=== PATIENT | male | born 1990 | race Caucasian/White ===

== ENCOUNTER 2018-03-02 07:35 | Outpatient (CLI) | payer BC ==
--- NOTE | 2018-03-02 08:57 | ULT ---
ABDOMINAL ULTRASOUND: DATE: 03/02/18. HISTORY: Abdominal pain. FINDINGS: The abdominal aorta, visualized portions of the IVC, limited visualized portions of the pancreas, aguilar er, spleen, and bilateral kidneys demonstrate a normal sonographic appearance. The right kidney aníbal ures 10.4 cm in length with the left kidney measuring 10.6 cm in length. The common duct measures 0. 3 cm in diameter. There are a few echogenic foci seen in the gallbladder lumen which do not demonstrate posterior shado wing and probably are related to cholesterol crystals. No gallbladder calculus is visualized. There is no gallbladder wall thickening or pericholecystic fluid. IMPRESSION: Findings likely related to cholesterol crystals/sludge in the gallbladder lumen. No gallbladder calc ulus is seen. The common duct is normal in caliber. Otherwise, no acute findings are seen on this a bdominal ultrasound. POS: [facility]
--- NOTE | 2018-03-02 09:24 | ULT ---
SCROTAL SONOGRAM WITH DUPLEX EVALUATION: HISTORY: Scrotal pain. FINDINGS: Right testicle 5.1 cm with scant microlithiasis. Good color and spectral Doppler flow. Left testicle 4.6 cm with good color and spectral Doppler flow. Slight interval increasing vasculari ty left scrotum upon Valsalva maneuver. IMPRESSION: Small left varicocele. No other significant abnormalities demonstrated. POS: [facility]
== END 2018-03-02 07:36 | disposition home or self-care (01) ==
LOC: ULT 07:35
PROVIDERS: ATTEND Internal Medicine Gastroenterology
DX: I86.1 Scrotal varices (principal)
CPT/HCPCS: 76700; 76870; 93976

== ENCOUNTER 2024-07-18 02:52 | Emergency (ER) | payer BC, SELFPAY ==
[2024-07-18] MEDS ORDERED: Bacitracin 1 PK ONE (03:51)
== END 2024-07-18 04:12 ==
LOC: ERS 02:52 → EEVIPCON 02:52 → ERS 04:12
DX: S63.267A Dislocation of metacarpophalangeal joint of left little finger, initial encounter (principal); V89.9XXA Person injured in unspecified vehicle accident, initial encounter
CPT/HCPCS: 26700